=== PATIENT | male | born 1955 | race Caucasian/White ===

== ENCOUNTER → 2017-09-30 14:53 | Outpatient (CLI) | payer SELFPAY | PROVIDERS: Visit Provider Nurse Practitioner Family | DX: R53.83 Other fatigue (principal); B00.9 Herpesviral infection, unspecified; Z79.899 Other long term (current) drug therapy ==

== ENCOUNTER → 2018-05-12 13:08 | Outpatient (POV) | payer SELFPAY | PROVIDERS: Visit Provider Dermatology | DX: Z00.00 Encounter for general adult medical examination without abnormal findings (principal) ==

== ENCOUNTER 2024-05-30 16:09 | Emergency (ER) | payer MEDICARE, SELFPAY ==
[2024-05-30] VITALS (8 sets, daily range): BP systolic 112–137; BP diastolic 63–88; PULSE 72–93; RESP 16–18; TEMP 36.6–36.9; O2SAT 93–96; BMI 28.2
[2024-05-30 16:39] LABS: Coronavirus 19, PCR Not Detected (NotDetected); Influenza B, PCR Not Detected (NotDetected)
[2024-05-30 16:41] LABS: Microscopic, Urine URINE MICROSCOPIC (MICROSCOPIC)
[2024-05-30 16:42] LABS: Appearance,Urine CLEAR (Clear); Blood, Urine 1+ (Negative); Color,Urine YELLOW (Yellow); Glucose,Urine (UA) Negative (Negative); Ketones,Urine 1+ (Negative); Leukocyte Esterase,Urine Negative (Negative); Nitrate,Urine Negative (Negative); PH,Urine 6.5 (5.0-8.5); Protein,Urine 1+ (Negative); Specific Gravity, Urine 1.025 (1.005-1.030); Urobilinogen,Urine 0.2 EU/dl (0.2)
[2024-05-30 16:44] LABS: Bilirubin,Urine 2+ (Negative)
--- NOTE | 2024-05-30 16:51 | PC.NURSE ---
rounded on patient. gave warm blanket
[2024-05-30 16:59] LABS: Albumin Level 4.7 g/dl (3.5-5.0); Chloride 95 mmol/L (98-107); Sodium 132 mmol/L (136-145)
[2024-05-30] MEDS: LACTATED RINGERS 1000ML 1,000 ML 999 ML IV (17:00)
[2024-05-30] MEDS: ONDANSETRON 4MG/2ML VIAL 4 MG IV ×2 (17:00→18:36)
[2024-05-30 17:02] LABS: Alanine Aminotransferase 21 U/L (12-78); Albumin/Globulin Ratio 1.5 (1.1-1.8); Alkaline Phosphatase 58 U/L (38-126); Aspartate Amino Transferase 34 U/L (17-59); Bilirubin,Total 0.6 mg/dl (0.2-1.3); Blood Urea Nitrogen 17 mg/dl (9-20); Carbon Dioxide 29 mmol/L (22.0-30.0); Creatinine Clearance Estimated 78 mL/min (50-200); Estimated Glomerular Filt Rate 84 ml/min (>60); GFR (African American) 101 ML/MIN (>60); Globulin 3.2 g/dL (1.3-3.2); Total Protein,Serum 7.9 g/dl (6.3-8.2)
[2024-05-30 17:03] LABS: Calcium 9.3 mg/dl (8.4-10.2); Glucose 118 mg/dl (74-100); Lipase 213 U/L (23-300)
[2024-05-30 17:03] LABS: Influenza A, PCR Detected (NotDetected)
[2024-05-30 17:05] LABS: Basophils % 0.2 % (0.1-2.0); Hematocrit 47.9 % (42.0-52.0); Hemoglobin 16.7 g/dL (14.1-18.0); Lymphocytes # 0.9 K/mm3 (0.7-4.5); Lymphocytes % 8.2 % (10-50); Mean Corpuscular HGB Conc 34.9 g/dL (31.8-35.4); Mean Corpuscular Hemoglobin 31.7 pg (27.0-31.2); Mean Corpuscular Volume 91.1 fl (80-94); Mean Platelet Volume 9.1 fl (7.4-10.4); Monocytes # 1.2 K/mm3 (0.1-1.0); Monocytes % 11.2 % (1.7-9.3); Neutrophils # 8.7 K/mm3 (1.8-7.8); Platelet Count 229 K/mm3 (142-424); Red Blood Count 5.26 M/mm3 (4.60-6.20); Red Cell Distribution Width 13.3 % (11.5-17.5); White Blood Count 10.8 K/mm3 (4.8-10.8)
[2024-05-30 17:12] LABS: Bacteria,Urine Trace /lpf; Mucus,Urine 1+ /lpf; Squamous Epithelial Cell,Urine Occasional #/hpf (0-5); WBC,Urine Occasional #/hpf (0-3)
[2024-05-30 17:59] LABS: HIV Combo NEGATIVE (Negative)
--- NOTE | 2024-05-30 18:02 | CT_ITS ---
PROCEDURE INFORMATION: Exam: CT Abdomen And Pelvis With Contrast Exam date and time: 05/30/2024 6:25 PM Age: 68 years old Clinical indication: Abdominal pain; Additional info: Abd pain TECHNIQUE: Imaging protocol: Computed tomography of the abdomen and pelvis with contrast. Radiation optimization: All CT scans at this facility use at least one of these dose optimization techniques: automated exposure control; mA and/or kV adjustment per patient size (includes targeted exams where dose is matched to clinical indication); or iterative reconstruction. Contrast material: ISOVUE; Contrast volume: 75 ml; Contrast route: IV; COMPARISON: No relevant prior studies available. FINDINGS: Lungs: Mild infiltrate versus atelectasis in the left lower lobe. Lower lungs are otherwise clear. Liver: Normal. No mass. Gallbladder and biliary ducts: Normal. No calcified stones. No ductal dilation. Pancreas: Normal. No ductal dilation. Spleen: Normal. No splenomegaly. Adrenal glands: Normal. No mass. Kidneys and ureters: 3.7 cm exophytic simple cortical cyst of the left kidney. Right kidney appears normal. No hydronephrosis. Stomach and bowel: No bowel wall thickening or evidence of bowel obstruction. Appendix: The appendix is visualized and appears normal. Intraperitoneal space: Unremarkable. No free air. No significant fluid collection. Vasculature: Significant mural thrombus and atherosclerotic calcification throughout the aorta and iliac arteries. 3.3 cm infrarenal abdominal aortic aneurysm. No evidence of aortic dissection. Lymph nodes: Unremarkable. No enlarged lymph nodes. Urinary bladder: Unremarkable as visualized. Reproductive: Prostate gland is enlarged, measuring 6 cm greatest diameter. Bones/joints: Moderate degenerative changes throughout the lower spine. No vertebral body compression. No acute fracture. Soft tissues: Partially visualized left inguinal hernia containing a portion of the sigmoid colon. IMPRESSION: 1. Minimal left lower lobe infiltrate versus atelectasis 2. Significant atherosclerotic changes with 3.3 cm abdominal aortic aneurysm 3. Prostatomegaly 4. Partially visualized left inguinal hernia containing a portion of the sigmoid colon. No evidence of hernia incarceration or bowel obstruction. COMMENTS: Consistent with the [employer]'s Incidental Findings Committee white paper (J Am Carlos Radiol 2018): Any incidental renal lesion less than 1 cm or classified as too small to characterize, or any incidental cystic renal lesion characterized as simple-appearing, is likely benign. No follow-up imaging is recommended for these lesions per consensus recommendations based on imaging criteria.
[2024-05-30 18:07] LABS: Hepatitis C Ab Qual. W/ RFX NEGATIVE (Negative)
--- NOTE | 2024-05-30 18:13 | ED_ITS ---
<Statement entered by Gavin Verma MD - 05/30/24 23:14> I was consulted by the KODY, and we discussed the complexity of the problems being addressed. I approved the treatment and management plan for this patient's care in the emergency department, thus performing a substantive portion of the medical decision making. Gavin Verma MD Discharge Plan Disposition Patient Disposition: Home, Self-Care Condition: Good Prescriptions Prescriptions: New ondansetron 4 mg tablet,disintegrating 4 mg PO DAILY 5 Days Qty: 5 0RF ondansetron 4 mg tablet,disintegrating 4 mg PO DAILY 5 Days Qty: 5 0RF No Action acyclovir 400 mg tablet 400 mg .ROUTE BID Qty: 180 3RF Rx Instructions: 400 mg twice a day; Referrals Follow up/Referrals: Demar Cook MD [Primary Care Provider] - See instructions Activity Restrictions/Add. Instructions Additional Instructions/Restrictions: Please increase fluid intake. You may also take acetaminophen and ibuprofen for symptomatic relief. Return to the ED for worsening of condition. Your CT scan shows an abdominal aortic aneurysm, please follow-up with your PCP for monitoring. Clinical Impressions Clinical Impression: Influenza A, Abdominal pain, Aortic aneurysm, Nausea Instructions Patient Instructions: DI for Acute Abdominal Pain Print Language Print Language: Pakistani Discharge ED Provider: Gavin Verma General Adult HPI General Chief complaint: Abdominal Pain Stated complaint: V/D,fever Time Seen by Provider: 05/30/24 16:34 Mode of Arrival: Wheelchair Source of Information: Patient Limitations: No Limitations Description of Symptoms (Recalled from ER Triage Doc. by RN): Patient presents ambulatory to triage with his spouse. States he has been having nausea/vomiting x5 days. Denies seeking care prior to today. States he was exposed to Flu A prior to his illness. Endorses diarrhea. Denies urinary symptoms. States he is having difficulty taking in oral intake. Patient states he has been taking Advil. States, Tylenol does nothing or me. History of Present Illness HPI narrative: 68-year-old male presents to the ED for complaints of abdominal pain, nausea, vomiting, diarrhea. Patient states he is unable to keep food or fluids down at this time Related Data Previous Rx's ?Medication ?Instructions ?Recorded acyclovir 400 mg tablet 400 mg .Route BID #180 tabs 11/06/21 ondansetron 4 mg disintegrating 4 mg PO DAILY 5 days #5 tabs 05/30/24 tablet ondansetron 4 mg disintegrating 4 mg PO DAILY 5 days #5 tabs 05/30/24 tablet Allergies Allergy/AdvReac Type Severity Reaction Status Date / Time codeine Allergy Verified 11/06/21 15:21 rofecoxib (From Vioxx) Allergy Verified 11/06/21 15:21 [facility] Disclaimer: The information contained in this section may have been updated after the patient was seen, as this information can be updated by other users. Social History Smoking Status: Current every day smoker alcohol intake: never substance use type: denies use current occupational status: retired Travel in the last 8 weeks: None household members: spouse housing: house Have you lived/traveled outside US in past 30 days?: No Contact w/someone who lives/traveled outside US past 30 days?: No Exposure to someone with infectious disease in past 14 days?: No Do you have a fever (greater than 100.4 F or 38 C)?: No Have you tested positive for COVID-19: No Exposed to someone with COVID-19 in past 14 days?: No Do you have a sore throat?: No Do you have a cough?: No Do you have any weakness?: Yes Do you have any diarrhea?: Yes Are you experiencing any unusual bleeding?: No Do you have any muscle aches/pain?: No Do you have any abdominal pain?: No Are you experiencing loss of taste or smell?: No Other Medical History Have you received the Flu Vaccine for this season: Yes Have you received the Pneumonia Vaccine: No ROS Obtained: Yes Systems reviewed as appropriate & no additional complaints except as documented Physical Exam General General appearance: alert and in no apparent distress Head Head exam: atraumatic and normocephalic Eye Eye exam: Present normal appearance and PERRL ENT ENT exam: Present normal exam Neck Neck exam: Present normal inspection Chest Chest inspection: Present normal inspection and symmetric chest wall rise; Absent tenderness Respiratory Respiratory exam: Present normal lung sounds bilaterally Cardiovascular Cardiovascular exam: Present regular rate Abdominal Exam Abdominal exam: Present soft, tenderness (Mild generalized) and normal bowel sounds Extremities Exam Extremities exam: Present normal inspection and full ROM Back Exam Back exam: Present normal inspection and full ROM Neurological Exam Neurological exam: Present alert and oriented X3 Psychiatric Psychiatric exam: Present normal affect and normal mood Skin Skin exam: Present warm and dry Medical Decision Making Medical Records Screening: Per USPSTF and CDC recommendations, given the prevalence of disease in our region, it is our hospital?s policy to screen for HIV and viral Hepatitis for all patients aged 18 and over and those with ongoing risk factors. Marcelino Inquiry Pt receiving controlled substance: No Marcelino was queried for this patient: No Vital Signs: 05/30/24 16:26 05/30/24 17:00 05/30/24 17:30 Temperature 98.4 F Temperature Source Oral Pulse Rate 78 76 Pulse Rate [Radial] 93 H Respiratory Rate 16 Blood Pressure 112/63 129/72 Blood Pressure [R Arm] 135/88 Blood Pressure Mean Blood Pressure Mean [R Arm] 103 02 Sat by Pulse Oximetry 95 96 95 Oxygen Delivery Method Room Air Room Air 05/30/24 18:00 05/30/24 18:31 05/30/24 19:00 Temperature Temperature Source Pulse Rate 72 77 Pulse Rate [Radial] Respiratory Rate Blood Pressure 130/70 137/71 132/71 Blood Pressure [R Arm] Blood Pressure Mean 96 Blood Pressure Mean [R Arm] 02 Sat by Pulse Oximetry 94 L 94 L Oxygen Delivery Method Room Air Room Air 05/30/24 19:00 05/30/24 19:15 05/30/24 20:25 Temperature 97.9 F Temperature Source Pulse Rate 72 75 93 H Pulse Rate [Radial] Respiratory Rate 18 Blood Pressure 132/70 Blood Pressure [R Arm] Blood Pressure Mean Blood Pressure Mean [R Arm] 02 Sat by Pulse Oximetry 94 L 93 L Oxygen Delivery Method Room Air Lab Data Lab Results 05/30/24 16:33: Urine Color Yellow, Urine Appearance Clear, Urine pH 6.5, Ur Specific Buckner 1.025, Urine Protein 1+ A, Urine Glucose (UA) Negative, Urine Ketones 1+, Urine Blood 1+ A, Urine Nitrate Negative, Urine Bilirubin 2+ A, Urine Urobilinogen 0.2, Ur Leukocyte Esterase Negative, Urine RBC None, Urine WBC Occasional, Ur Squamous Epith Cells Occasional, Urine Bacteria Trace, Urine Mucus 1+, SARS-CoV-2 (PCR) Not detected, Influenza A Untype (PCR) Detected A, Influenza Type B (PCR) Not detected 05/30/24 16:45: WBC 10.8, RBC 5.26, Hgb 16.7, Hct 47.9, MCV 91.1, MCH 31.7 H, MCHC 34.9, RDW 13.3, Plt Count 229, MPV 9.1, Neut % (Auto) 80.0, Lymph % (Auto) 8.2 L, Hughes % (Auto) 11.2 H, Eos % (Auto) 0.0 L, Baso % (Auto) 0.2, Neut # (Auto) 8.7 H, Lymph # (Auto) 0.9, Hughes # (Auto) 1.2 H, Eos # (Auto) 0.0, Baso # (Auto) 0.0, Sodium 132 L, Potassium 4.0, Chloride 95 L, Carbon Dioxide 29, Anion Gap 12.0, BUN 17, Creatinine 0.90, Estimated Creat Clear 78, Estimated GFR 84, Est GFR ( Amer) 101, Glucose 118 H, Calcium 9.3, Total Bilirubin 0.6, AST 34, ALT 21, Alkaline Phosphatase 58, Total Protein 7.9, Albumin 4.7, Globulin 3.2, Albumin/Globulin Ratio 1.5, Lipase 213, HCV Ab RAMANA w/Rflx PCR Qn Negative, HIV Ag/Ab Combo Qual Negative 05/30/24 16:45 05/30/24 16:45 Orders (Tests/Meds): ED MEDICATIONS Discontinued Medications Generic Name Dose Route Start Last Admin Trade Name Freq PRN Reason Stop Dose Admin Lactated Ringer's 1,000 mls @ 999 mls/hr 05/30/24 16:47 05/30/24 17:00 Lactated Ringer's 1000 Ml Bag IV 05/30/24 17:47 999 mls/hr .Q1H1M ONE Administration Iopamidol 75 ml 05/30/24 18:23 05/30/24 18:24 Iopamidol-370 (76%);100ml Bottle IV 05/30/24 18:24 75 ml ONCE ONE Administration Ondansetron HCl 4 mg 05/30/24 16:52 05/30/24 17:00 Ondansetron 4mg/2ml Vial IV 05/30/24 16:53 4 mg ONCE ONE Administration Ondansetron HCl 4 mg 05/30/24 18:04 05/30/24 18:36 Ondansetron 4mg/2ml Vial IV 05/30/24 18:05 4 mg ONCE ONE Administration Prochlorperazine Edisylate 5 mg 05/30/24 19:06 05/30/24 19:13 Prochlorperazine 10mg/2ml Vial IV 05/30/24 19:07 5 mg ONCE ONE Administration Sodium Chloride 10 ml 05/30/24 18:23 05/30/24 18:24 Sodium Chloride 0.9% 10ml Syr (Rad Only) IV 05/30/24 18:24 10 ml ONCE ONE Administration ORDERS Category Date Time Status CT abdomen pelvis w con Stat Cat Scan 05/30/24 18:02 Completed Complete Blood Count Auto Diff Stat Lab 05/30/24 16:45 Completed Comprehensive Metabolic Panel Stat Lab 05/30/24 16:45 Completed HIV Combo Stat Lab 05/30/24 16:45 Completed Hepatitis C Ab Qual. W/ RFX Stat Lab 05/30/24 16:45 Completed Lipase Stat Lab 05/30/24 16:45 Completed Rapid PCR Covid and Flu A/B Stat Lab 05/30/24 16:33 Completed Urinalysis and Microscopic Stat Lab 05/30/24 16:33 Completed Medical Decision Narrative: In summary, patient is a 68-year-old male denies any significant PMHx who presents to the ED for 5 days of nausea, fatigue. States that 2 days ago he started generalized, cramping abdominal pain, vomiting and having diarrhea. He states he is having difficulty keeping food and fluids down. He has not taken any medications for symptomatic relief prior to arrival. He denies any known sick contacts. Upon initial exam, patient is alert, oriented and cooperative. Patient is hemodynamically stable. Physical exam remarkable for generalized abdominal tenderness. Denies headache, visual disturbances, posterior neck pain, chest pain, shortness of breath, dysuria. Differential diagnosis includes diverticulitis, viral syndrome, infectious process, influenza, GI illness, colitis, among others. Initial workup will be conducted with hematologic labs, respiratory swab & imaging. Initial inventions include IV fluids & Zofran. Initial workup reviewed by me. CBC unremarkable for any leukocytosis, stable H&H. CMP remarkable for sodium of 132, no actual abnormalities. Patient is positive for influenza A. I discussed use of Tamiflu, patient declines. CT scan of the abdomen pelvis unremarkable for anything acute, it is remarkable for a abdominal aortic aneurysm, no dissection. Upon repeat evaluation, patient had an acceptable resolution of symptoms. They were ambulatory in the ED. Able to tolerate PO. Given this, patient is appropriate for discharge at this time. We discussed Zofran prescription. Advised to increase fluid intake and take acetaminophen and ibuprofen [id number] he will follow-up with PCP this week. We discussed very strict return precautions to the ED. Patient verbalized understanding Critical Care Critical Care Time Critical Care Time: No
[2024-05-30] MEDS: IOPAMIDOL-370 (76%);100ML BOTTLE 75 ML IV (18:24)
[2024-05-30] MEDS: SODIUM CHLORIDE 0.9% 10ML SYR (RAD ONLY) 10 ML IV (18:24)
[2024-05-30] MEDS: PROCHLORPERAZINE 10MG/2ML VIAL 5 MG IV (19:13)
--- NOTE | 2024-05-30 19:15 | PC.NURSE ---
Medication administered as documented. Patient educated that we are awaiting his CT scan results. Patient and acknowledges understanding. Voices no questions or concerns at this time. Remains semi-fowlers atop stretcher.
== END 2024-05-30 20:27 | disposition home or self-care (01) ==
PROVIDERS: Nurse Practitioner; Emergency Provider Emergency Medicine; PCP Family Medicine
DX: I71.9 Aortic aneurysm of unspecified site, without rupture (principal); J10.1 Influenza due to other identified influenza virus with other respiratory manifestations; R10.9 Unspecified abdominal pain; R11.2 Nausea with vomiting, unspecified; R19.7 Diarrhea, unspecified; R63.8 Other symptoms and signs concerning food and fluid intake; Z72.0 Tobacco use; Z20.828 Contact with and (suspected) exposure to other viral communicable diseases
CPT/HCPCS: 74177; 80053; 81001; 83690; 85025; 86803; 87389; 87636; 96361; 96374; 96375; 99285; J0780; J2405; J7120; Q9967

== ENCOUNTER 2024-12-24 15:38 | Emergency (ER) | payer MEDICARE, SELFPAY ==
--- OUTSIDE RECORDS SUMMARY | 2024-10-11 09:30 | XMS_ITS ---
Author Organization Michael Address [address] [facility] [address] [place] [id number] Care Team Providers Care Receiving Associate Name Role Phone Sven Paz Unavailable [phone] Allergies No Known Allergies Reason For Referral Diagnosis 1 Left inguinal hernia (K40.90) Referral Organization [facility] Referring Provider First Name Sven Referring Provider Last Name Brandi Referring Provider Speciality Family Pra ctice Referred Provider Hilary Patel Referred Provider Specialty General Surg rigo General Notes Hannah Rodriguez 2024 02:43:31 PM > faxed to Dr. Patel' office Referral Priority Routine REASON FOR VISIT check up Medications Medication SIG (Take, Route, Fr equency, Duration) Notes Start Date End Date Status Acyclovir 400 MG 1 tablet Orally Twice a day Not-Taking Social History Tobacco Use: Social History Observation Description Date Details (start date - stop date) Current Smoker NA - NA CURRENT TOBACCO USE: Question Answer Notes Are you a: current every day smoker 1 PPD Problems Problem Type SNOMED Code ICD Code Onset Dates Problem Status W/U Status Risk Notes Problem Abdominal aortic aneurysm without rupture (disorder) (80057535) Abdominal aortic aneurysm (AAA) without rupture, unspecified part (I71.40) Active confirmed Problem Cigarette smoker (45472737) Cigarette smoker (F17.210) Active confirmed Vital Signs Weight 158.8 lbs 10/11/2024 Blood pressure systolic 114 mm Hg 10/12/19 25 Blood pressure diastolic 78 mm Hg 025 Heart Rate 72 /min 10/11/2024 Height 67 in 10/11/2024 BMI 24.87 kg/m2 10/11/2024 Encounters Encounter Location Date Provider Diagnosis [facility] [address] [place] [id number] 10/11/2024 Sven Paz Left inguinal hernia K40.90 ; Abdominal aortic aneurysm (AAA) without rupture, unspecified part I71.40 ; Cigarette smoker F17.210 and BMI 24.0-24.9, adult Z68.24 Assessments Encounter Date Diagnosis (ICD Code) Assessment Notes Treatment Notes Treatment Clinical Notes Section Notes 10/11/2024 Left inguinal hernia (ICD-10 - K40.90) 10/11/2024 Abdominal aortic aneurysm (AAA) without rupture, unspecified part (ICD-10 - I71.40) Plan to image again in 2025 10/11/2024 Cigarette smoker (ICD-10 - F17.210) Smoking cessation and necessary changes of behavior discussed with patient 10/11/2024 BMI 24.0-24.9, adult (ICD-10 - Z68.24) 10/11/2024 Other ER records including MD note, labs and radiology report reviewed in office today Plan Of Treatment Treatment Notes Assessment Notes Abdominal aortic aneurysm (A AA) without rupture, unspecified part Plan to image again in 2025 Cigarette smoker Smoking cessation an d necessary changes of behavior discussed with patient Other ER records including MD note, labs and radiology report reviewed in office today Referrals Referral Date Details 10/11/2024 10/11/2024, Hilary Patel Next Appt Details Follow Up: 6 Months, Reason: Provider Name:Sven Yanez , 04/11/2025 01:45:00 PM, [address], [address], [place], [id number], Progress Notes * MIGUELJaylinNicoleOB:1955 (69 yo M)Acc No.[id number]:10/11/2024 Progress Notes Patient: Tito CHERRY Provider: Davi Paz M.D. :1955 A ge:69 Y S ex:Male Date:10/11/2024 Phone: Address[id number] Subjective: * Chief Complaints: * 1 . Check up. * HPI: H PI: 69 year old male presents with c/o Patient is here today for?Pt here to establish care, pt was previously seen by Dr. Umaña a couple years ago . Pt states he was seen at [facility] er 05/29/2024 and dx with 3.3 cm abdominal aortic aneurysm, pt would like to discuss it today to see what next step is. * ROS: D ERMATOLOGY: no R jamal. n o H marj. G ASTROENTEROLOGY: no N ausea. n o V omiting. U ROLOGY: no D ifficulty urinating. n o B lood in urine. * Medical History: G enital herpes, abdominal aortic aneurysm, 3.3 cm in 2024, 50 pack year smoking history as of 2024, Left Inguinal hernia. * Surgical History: D enies Past Surgical History. * Hospitalization/Major Diagno stic Procedure: D enies Past Hospitalization. * Family History: 2 brother(s) . 2 son(s) , 1 daughter(s) . . * Social History: C URRENT TOBACCO USE: Yes A re you a: c urrent every day smoker 1 PPD. C affeine: yes, frequency: Daily. Alcohol: no. * Medications: N ot-Taking Acyclovir 400 MG Tablet 1 tablet Orally Twice a day , Medication List reviewed and reconciled with the patient * Allergies: N .K.D.A. Objective: * Vitals: W t: 158.8, Temp: 97.8, BP: 114/78, HR: 72, Nurse: amy, Ht: 67, BMI:24.87. * Examination: G eneral Examination: General Appearance: N AD. H eart: R SR. L ungs:?clear to auscultation. A bdomen: b owel sounds present, soft and nontender. P eripheral pulses: n ormal (2+) bilaterally. E xtremities: n o leg edema. G enitalia: large nonreducible left inguinal hernia. Assessment: * Assessment: 1. L eft inguinal hernia - K40.90 (Primary) 2 . A bdominal aortic aneurysm (AAA) without rupture, unspecified part - I71.40 3 . C igarette smoker - F17.210? 4. B CA 24.0-24.9, adult - Z68.24 Plan: * Treatment: 2. A bdominal aortic aneurysm (AAA) without rupture, unspecified part Notes: Plan to image again in 2025 3. C igarette smoker Notes: Smoking cessation and necessary changes of behavior discussed with patient 4. O thers Notes: ER records including MD note, labs and radiology report reviewed in office today * Procedure Codes: G 2211 Complex e/m visit add on, G8420 BMI<30 AND >=22 CALC & DOCU, G8783 BP SCR PRFRM RCMDD DEFIND SCR INTVL, G8752 MOST RECENT SYSTOLIC BP < 140MM HG, G8754 MOST RECENT DIASTOLIC BP < 90MM HG, G9902 Pt scrn tbco and id as user, G9906 Pt recv tbco cess interv * Follow Up: 6 Months * Images: Billing Information: * Visit Code: 29276 Office Visit, New Pt., Level 4. * Procedure Codes: G2211 Complex e/m visit add on. G8420 BMI<30 AND >=22 CALC & DOCU. G8783 BP SCR PRFRM RCMDD DEFIND SCR INTVL. G8752 MOST RECENT SYSTOLIC BP < 140MM HG. G8754 MOST RECENT DIASTOLIC BP < 90MM HG. G9902 Pt scrn tbco and id as user. G9906 Pt recv tbco cess interv. * Electronic signature of Annetta Paz MD on 12/24/2024 at 04:04 PM EDT Sign off status: Pending * Provider: Davi Paz M.D. Date: 10/11/2024 Generated for Alycia elise/Pepe/eTransmitting on: 0 12/24/2024 04:04 PM EDT History and Physical Notes * HPI (History of Present Illness) Category Sub-Category Detail Notes Category Not es HPI Patient is here today for Pt her e to establish care, pt was previously seen by Dr. Umaña a couple years ago . Pt states he was seen at [facility] er 05/29/2024 and dx with 3.3 cm abdominal aortic aneurysm, pt would like to discuss it today to see what next step is Examination Category Sub-Category Detail Notes Category Not es General Examination Heart: RSR Lungs: clear to auscultatio n Abdomen: bowel sounds present , soft and nontender Extremities: no leg edema General Appearance: NAD Peripheral pulses: normal (2+) bilatera lly Genitalia: large nonreducible l eft inguinal hernia Consultation Request Notes Referral Date Referring Provider Referred Provider Not es 10/11/2024 Sven Paz Danielle
--- OUTSIDE RECORDS SUMMARY | 2024-10-25 05:03 | XMS_ITS ---
Author Organization Peggy Address [address] [facility] [address] [facility] [address] [place] [id number] Care Team Providers Care Fern Picker Name Role Phone Sven Paz Unavailable [phone] REASON FOR VISIT due colonoscopy Encounters Encounter Location Date Provider Diagnosis [facility] [address] [place] [phone] 10/25/2024 Sven Paz Screening for colon cancer Z12.11 Assessments Encounter Date Diagnosis (ICD Code) Assessment Notes Treatment Notes Treatment Clinical Notes Section Notes 10/25/2024 Screening for colon cancer (ICD-10 - Z12.11) Plan Of Treatment Pending Test Test Name Order Date Cologuard 10/25/2024 Next Appt Details Provider Name:Sven Yanez ry, 04/11/2025 01:45:00 PM, [address], [address], [place], [id number], Progress Notes * Rancho RIVERAOB:1955 (69 yo M)Acc No.[id number]:10/25/2024 Patient: Tito CHERRY :1955 A ge:69 Y S ex:Male Phone: Address:[place], [address] Subjective: * Chief Complaints: * D ue colonoscopy * Medical History: * Surgical History: * Hospitalization/Major Diagno stic Procedure: * Medications: Objective: * Vitals: * Physical Examination: Assessment: * Assessment: 1. S creening for colon cancer - Z12.11 (Primary) Plan: * Treatment: * Procedure Codes: * true * Date: Generated for Printi ng/Faxing/eTransmitting on: 0 12/24/2024 04:05 PM EDT
[2024-12-24] VITALS (8 sets, daily range): BP systolic 105–145; BP diastolic 62–89; PULSE 83–108; RESP 13–20; TEMP 37.2–37.3; O2SAT 92–99; BMI 24.7
[2024-12-24 16:00] LABS: Coronavirus 19, PCR Not Detected (NotDetected); Influenza A, PCR Not Detected (NotDetected); Influenza B, PCR Not Detected (NotDetected)
--- OUTSIDE RECORDS SUMMARY | 2024-12-24 16:05 | XMS_ITS | Patient Health Record ---
Author Organization Michael Address [address] [facility] [address] [place] [id number] Care Team Providers Care Cosmetic Chemist Name Role Phone Sven Paz Unavailable [phone] Allergies No Known Allergies Reason For Referral Diagnosis 1 Left inguinal hernia (K40.90) [facility]erring Provider First Name Sven Referring Provider Last Name Brandi Referring Provider Speciality Family Pra ctice Referred Provider Hilary Patel Referred Provider Specialty General Surg rigo General Notes Hannah Rodriguez 2024 02:43:31 PM > faxed to Dr. Patel' office Referral Priority Routine Medications Medication SIG (Take, Route, Fr equency, [...] Problem Status W/U Status Risk Notes Problem Cigarette smoker (31128097) Cigarette smoker (F17.210) Active confirmed Problem Abdominal aortic aneurysm without rupture (disorder) (38522549) Abdominal aortic aneurysm (AAA) without rupture, unspecified part (I71.40) Active confirmed Vital Signs Heart Rate 72 /min 10/11/2024 Blood pressure diastolic 78 mm Hg 10/11/2024 Height 67 in 10/11/2024 Blood pressure systolic 114 mm Hg 10/11/2024 Weight 158.8 lbs 10/11/2024 BMI 24.87 kg/m2 10/11/2024 Encounters Encounter Location Date Provider [facility] [address] [facility] [address] [place] [phone] 10/11/2024 Sven Paz Left inguinal hernia K40.90 ; Abdominal aortic aneurysm (AAA) without rupture, unspecified part I71.40 ; Cigarette smoker F17.210 and BMI 24.0-24.9, adult Z68.24 [facility] [address] [facility] 36 [facility] [address] [place] [id number] 10/25/2024 Sven Paz Screening for colon cancer Z12.11 Assessments Encounter Date Diagnosis (ICD Code) Assessment Notes Treatment Notes Treatment Clinical Notes Section Notes 10/11/2024 Left inguinal hernia (ICD-10 - K40.90) 10/11/2024 Abdominal aortic aneurysm (AAA) without rupture, unspecified part (ICD-10 - I71.40) Plan to image again in 2025 10/25/2024 Screening for colon cancer (ICD-10 - Z12.11) 10/11/2024 Cigarette smoker (ICD-10 - F17.210) Smoking cessation and necessary changes of behavior discussed with patient 10/11/2024 BMI 24.0-24.9, adult (ICD-10 - Z68.24) 10/11/2024 Other ER records including MD note, labs and radiology report reviewed in office today Plan Of Treatment Pending Test Test Name Order Date Cologuard 10/25/2024 Next Appt Details Provider Name:Sven Yanez ry, 04/11/2025 01:45:00 PM, [address] [facility] 36 [facility], [address], [place], [place], [id number], Insurance Providers Payer Name Payer Address Payer Phone Subscriber Number Group Number Insured Name Patient Relationship to Insured Coverage Start Date Coverage End Date [employer] (MEDICARE) [address] [address] [place] [phone] [id number] Tito Rivera Self - patient is the insured MEDICARE PART B [address] [address] [place] [address] [phone] [id number] Tito Rivera Self - patient is the insured Medical (General) History Medical History History ICD Code Genital herpes abdominal aortic aneurysm, 3.3 cm in May 50 pack year smoking history as of 2024 Left Inguinal hernia
--- NOTE | 2024-12-24 16:38 | XR_ITS ---
PROCEDURE INFORMATION: Exam: XR Chest Exam date and time: 12/24/2024 5:00 PM Age: 69 years old Clinical indication: Cough and shortness of breath; Additional info: Eval for pneumonia, left TECHNIQUE: Imaging protocol: Radiologic exam of the chest. Views: 2 views. COMPARISON: CT ABDOMEN PELVIS W CON 05/30/2024 6:25 PM FINDINGS: Lungs: Opacities in the right lower lobe Pleural spaces: Unremarkable. No pleural effusion. No pneumothorax. Heart/Mediastinum: Unremarkable. No cardiomegaly. Bones/joints: Unremarkable. IMPRESSION: Opacities in the right lower lobe may represent atelectasis or pneumonia
--- NOTE | 2024-12-24 16:41 | HMH.EDGENADL ---
Discharge Plan Disposition Patient Disposition: Home, Self-Care Condition: Good Prescriptions Prescriptions: New amoxicillin-pot clavulanate 875-125 mg tablet 1 tab PO Q12H 5 Days Qty: 10 0RF No Action acyclovir 400 mg tablet 400 mg .ROUTE BID Qty: 180 3RF Rx Instructions: 400 mg twice a day; ondansetron 4 mg tablet,disintegrating 4 mg PO DAILY 5 Days Qty: 5 0RF ondansetron 4 mg tablet,disintegrating 4 mg PO DAILY 5 Days Qty: 5 0RF Referrals Follow up/Referrals: Sven Paz MD [Primary Care Provider, Medical] - See instructions Activity Restrictions/Add. Instructions Additional Instructions/Restrictions: Please take Augmentin twice daily for the next 5 days. IF you have any new or worsening symptoms please return to the ER for further evaluation. Clinical Impressions Clinical Impression: Pneumonia Qualifiers: Pneumonia type: due to unspecified organism Laterality: unspecified laterality Lung location: unspecified part of lung Qualified Code(s): J18.9 - Pneumonia, unspecified organism Print Language Print Language: Setswana Discharge ED Provider: Sam Elizondo Adult HPI General Chief complaint: Nausea/Vomiting/Diarrhea Stated complaint: nausea,vomiting,chest congestion Time Seen by Provider: 12/24/24 16:09 Mode of Arrival: Ambulatory Source of Information: Patient Description of Symptoms (Recalled from ER Triage Doc. by RN): patient presents to the Ed with comlaints of nausea/vmiting since friday with severe congestion. patient stated that he hasnt been able to keep anything down at home until today, but is extremly nauseated. History of Present Illness HPI narrative: This is a 69-year-old male patient, with past medical history of tobacco abuse, who is presenting to the emergency department today for evaluation of malaise. Patient states that over the last few days has developed a productive cough as well as posttussive emesis. He states that since the onset of these symptoms he has become profoundly weak and has lack of interest in his usual activities. He states that he feels as if he is wheezing and needs a breathing treatment. He states that he is having diffuse bodyaches and pains feels subjectively febrile but has not measured his temperature. He has not had any abdominal pain or diarrhea. No urinary symptoms. No chest pain. The patient states that the last time he felt this way he was diagnosed with influenza Related Data Previous Rx's ?Medication ?Instructions ?Recorded acyclovir 400 mg tablet 400 mg .Route BID #180 tabs 11/06/21 ondansetron 4 mg disintegrating 4 mg PO DAILY 5 days #5 tabs 05/30/24 tablet ondansetron 4 mg disintegrating 4 mg PO DAILY 5 days #5 tabs 05/30/24 tablet amoxicillin 875 mg-potassium 1 tab PO Q12H 5 days #10 tabs 12/24/24 clavulanate 125 mg tablet Allergies Allergy/AdvReac Type Severity Reaction Status Date / Time codeine Allergy Verified 11/06/21 15:21 rofecoxib (From Vioxx) Allergy Verified 11/06[facility]21 15[facility] Disclaimer: The information contained in this section may have been updated after the patient was seen, as this information can be updated by other users. Social History Smoking Status: Current some day smoker alcohol intake: never substance use type: denies use current occupational status: retired Travel in the last 8 weeks?: None household members: spouse housing: house Have you lived/traveled outside US in past 30 days?: No Contact w/someone who lives/traveled outside US past 30 days?: No Exposure to someone with infectious disease in past 14 days?: No Do you have a fever (greater than 100.4 F or 38 C)?: No Have you tested positive for COVID-19?: No Exposed to someone with COVID-19 in past 14 days?: No Do you have a sore throat?: No Do you have a cough?: No Do you have any weakness?: No Do you have any diarrhea?: No Are you experiencing any unusual bleeding?: No Do you have any muscle aches/pain?: No Do you have any abdominal pain?: No Are you experiencing loss of taste or smell?: No Other Medical History Have you received the Flu Vaccine for this season: Yes Have you received the Pneumonia Vaccine: No ROS Obtained: Yes Systems reviewed as appropriate & no additional complaints except as documented Physical Exam General General appearance: other (See MDM) Respiratory Respiratory exam: Present other (See MDM) Cardiovascular Cardiovascular exam: Present other (See MDM) Neurological Exam Neurological exam: Present other (See MDM) Medical Decision Making Medical Records Medical records reviewed: Yes I reviewed the patient's medical records. Screening: Per USPSTF and CDC recommendations, given the prevalence of disease in our region, it is our hospital?s policy to screen for HIV and viral Hepatitis for all patients aged 18 and over and those with ongoing risk factors. Marcelino Inquiry Pt receiving controlled substance: No Marcelino was queried for this patient: No Vital Signs: 12/24/24 15:47 12/24/24 16:30 12/24/24 17:23 Temperature 99.2 F Temperature Source Temporal Artery Scan Pulse Rate 83 89 Pulse Rate [Right Radial] 89 Respiratory Rate 20 13 15 Blood Pressure 145/89 H 105/72 L Blood Pressure [Right Arm] 127/71 Blood Pressure Mean 106 Blood Pressure Mean [Right Arm] 89 Blood Pressure Source [Right Arm] Automatic Cuff Blood Pressure Position [Right Arm] Sitting 02 Sat by Pulse Oximetry 97 96 98 Oxygen Delivery Method Room Air Room Air 12/24/24 17:30 12/24/24 18:00 12/24/24 18:30 Temperature Temperature Source Pulse Rate 97 H 89 88 Pulse Rate [Right Radial] Respiratory Rate 15 14 16 Blood Pressure 120/76 139/70 136/62 Blood Pressure [Right Arm] Blood Pressure Mean 84 Blood Pressure Mean [Right Arm] Blood Pressure Source [Right Arm] Blood Pressure Position [Right Arm] 02 Sat by Pulse Oximetry 99 92 L 92 L Oxygen Delivery Method Room Air 12/24/24 19:28 12/24/24 20:47 Temperature 98.9 F Temperature Source Oral Pulse Rate 91 H 108 H Pulse Rate [Right Radial] Respiratory Rate 13 17 Blood Pressure 124/78 122/64 Blood Pressure [Right Arm] Blood Pressure Mean Blood Pressure Mean [Right Arm] Blood Pressure Source [Right Arm] Blood Pressure Position [Right Arm] 02 Sat by Pulse Oximetry 92 L Oxygen Delivery Method Room Air Room Air Lab Data Lab Results 12/24/24 15:32: SARS-CoV-2 (PCR) Not detected, Influenza A Untype (PCR) Not detected, Influenza Type B (PCR) Not detected 12/24/24 16:38: WBC 14.1 H, RBC 5.23, Hgb 16.3, Hct 47.8, MCV 91.4, MCH 31.2, MCHC 34.1, RDW 13.6, Plt Count 185, MPV 9.1, Neut % (Auto) 84.0 H, Lymph % (Auto) 8.6 L, [place] % (Auto) 6.9, Eos % (Auto) 0.0 L, Baso % (Auto) 0.1, Neut # (Auto) 11.9 H, Lymph # (Auto) 1.2, [place] # (Auto) 1.0, Eos # (Auto) 0.0, Baso # (Auto) 0.0, Sodium 132 L, Potassium 4.1, Chloride 96 L, Carbon Dioxide 26, Anion Gap 14.1, BUN 14, Creatinine 1.00, Estimated Creat Clear 70, Estimated GFR 74, Est GFR ( Amer) 89, Glucose 119 H, Calcium 9.0, Total Bilirubin 0.6, AST 28, ALT 12, Alkaline Phosphatase 63, Total Creatine Kinase 71, Total Protein 7.5, Albumin 4.5, Globulin 3.0, Albumin/Globulin Ratio 1.5 12/24/24 16:38 12/24/24 16:38 Orders (Tests/Meds): ED MEDICATIONS Discontinued Medications Generic Name Dose Route Start Last Admin Trade Name Freq PRN Reason Stop Dose Admin Albuterol/Ipratropium 9 ml 12/24/24 16:38 12/24/24 16:49 Ipratropium/Albuterol 3 Ml Neb IH 12/24/24 16:39 9 ml ONCE ONE Administration Amoxicillin/Clavulanate Potassium 1 each 12/24/24 20:32 12/24/24 20:39 Amoxicillin/Clavulanate Potassium 875/125mg Tablet PO 12/24/24 20:33 1 each ONCE ONE Administration Dexamethasone Sodium Phosphate 10 mg 12/24/24 20:32 12/24/24 20:39 Dexamethasone 4mg/Ml 1ml Vial IV 12/24/24 20:33 10 mg ONCE ONE Administration Lactated Ringer's 1,000 mls @ 999 mls/hr 12/24/24 16:38 12/24/24 16:49 Lactated Ringer's 1000 Ml Bag IV 12/24/24 17:38 999 mls/hr .Q1H1M ONE Administration ORDERS Category Date Time Status CXR 2 view (NOT portable) [XR chest 2V] Stat Exams 12/24/24 16:38 Completed CBC w/Auto Diff [Complete Blood Count Auto Diff] Stat Lab 12/24/24 16:38 Completed CK [Creatine Kinase] Stat Lab 12/24/24 16:38 Completed CMP [Comprehensive Metabolic Panel] Stat Lab 12/24/24 16:38 Completed Rapid PCR Covid and Flu A/B Stat Lab 12/24/24 15:32 Completed Medical Decision Narrative: In summary, this is a 69-year-old male patient who is presenting to the emergency department today for evaluation of malaise, cough, and posttussive emesis. Comorbidities include a past medical history of tobacco abuse. He does not have any formal diagnosis of hypertension, diabetes, hyperlipidemia, or coronary artery disease. On initial evaluation of the patient they were resting comfortably in no acute distress and nontoxic in appearance. They are hemodynamically stable, saturating well room air, and are neurologically intact. On physical examination the patient he is appropriately alert and interactive with a GCS of 15. He has a wheezing and crackles appreciated in his bilateral lung berger. He has no abdominal tenderness to palpation. No lower extremity erythema or pitting edema. He has no nuchal rigidity. Oropharyngeal exam is unremarkable. Differential diagnosis includes influenza, COVID, bronchitis, other viral syndrome. This could also be pneumonia which we will assess for with a chest x-ray. We will obtain hematologic labs to ensure that the patient has no electrolyte derangement or acute kidney injury associated with his posttussive emesis. We will also assess for rhabdomyolysis with a CK. Initial interventions included 3 DuoNebs as well as 1 L of lactated Ringer's. Labs were personally turbid by me and demonstrates a leukocytosis of 14.1. There is no electrolyte derangement or acute kidney injury. Viral swabs are negative. Chest x-ray was personally interpreted by me and demonstrates no evidence of pneumothorax or pleural effusion. 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 On repeat assessment of the patient his wheezing is still mildly present but has improved. He is still saturating well on room air and he feels a subjective sense of improvement in aeration. We have treated the patient with 10 mg of dexamethasone and have administered a dose of amoxicillin orally here in the emergency department. I will prescribe amoxicillin for the patient to take for the next 5 days for community-acquired pneumonia. I have asked him to come back to the emergency department if he has worsening shortness of breath, fevers that are not responding to Tylenol and Advil, or any other new or worsening symptoms. Patient acknowledges understanding of this plan and at this time all questions have been answered and all parties are agreeable with the decision to discharge home Critical Care Critical Care Time Critical Care Time: No
[2024-12-24 16:48] LABS: Hematocrit 47.8 % (42.0-52.0); Hemoglobin 16.3 g/dL (14.1-18.0); Immature Granulocytes % 0.4 %; Mean Corpuscular HGB Conc 34.1 g/dL (31.8-35.4); Mean Corpuscular Hemoglobin 31.2 pg (27.0-31.2); Mean Corpuscular Volume 91.4 fl (80-94); Nucleated Red Blood Cells % 0 %; Platelet Count 185 K/mm3 (142-424); Red Blood Count 5.23 M/mm3 (4.60-6.20); Red Cell Distribution Width-SD 46.5 fL; White Blood Count 14.1 K/mm3 (4.8-10.8)
[2024-12-24] MEDS: IPRATROPIUM/ALBUTEROL 3 ML NEB 9 ML IH (16:49)
[2024-12-24] MEDS: LACTATED RINGERS 1000ML 1,000 ML 999 ML IV (16:49)
[2024-12-24 16:56] LABS: Albumin Level 4.5 g/dl (3.5-5.0); Chloride 96 mmol/L (98-107); Potassium 4.1 mmoL/L (3.5-5.1); Sodium 132 mmol/L (136-145)
[2024-12-24 16:58] LABS: Blood Urea Nitrogen 14 mg/dl (9-20); Creatinine Clearance Estimated 70 mL/min (50-200); Creatinine,Serum 1.00 mg/dl (0.66-1.25); Estimated Glomerular Filt Rate 74 ml/min (>60); GFR (African American) 89 ML/MIN (>60)
[2024-12-24 16:59] LABS: Alanine Aminotransferase 12 U/L (12-78); Albumin/Globulin Ratio 1.5 (1.1-1.8); Alkaline Phosphatase 63 U/L (38-126); Anion Gap 14.1 mEq/L (5-15); Aspartate Amino Transferase 28 U/L (17-59); Bilirubin,Total 0.6 mg/dl (0.2-1.3); Calcium 9.0 mg/dl (8.4-10.2); Carbon Dioxide 26 mmol/L (22.0-30.0); Creatine Kinase 71 U/L (55-170); Globulin 3.0 g/dL (1.3-3.2); Glucose 119 mg/dl (74-100); Total Protein,Serum 7.5 g/dl (6.3-8.2)
[2024-12-24] MEDS: AMOXICILLIN/CLAVULANATE POTASSIUM 875/125MG TABLET 1 EACH PO (20:39)
[2024-12-24] MEDS: DEXAMETHASONE 4MG/ML 1ML VIAL 10 MG IV (20:39)
== END 2024-12-24 20:51 | disposition home or self-care (01) ==
PROVIDERS: Emergency Provider Student in an Organized Health Care Education/Training Program; PCP Family Medicine
DX: J18.9 Pneumonia, unspecified organism (principal)
CPT/HCPCS: 71046; 80053; 82550; 85025; 87636; 96361; 96374; 99285; J1100; J7120